=== PATIENT | male | born 1970 | race African-American/Black ===

== ENCOUNTER 2020-12-06 22:02 | Emergency (ER) | payer SELFPAY ==
[~2020-12-06] VITALS: Ht 185.4 cm; Wt 118.9 kg
[2020-12-06 22:03] VITALS: BP 141/97
[2020-12-07] MEDS ORDERED: NS 1,000 ML IV ONE (01:10)
[2020-12-07 01:52] LABS: BASO # 0.1 10^3/uL (0.0-0.2); EOS # 0.5 10^3/uL (0.0-0.5); EOS % 8.6 % (0.0-3.0); HEMATOCRIT 45.3 % (42.0-52.0); HEMOGLOBIN 15.3 g/dl (13.5-17.5); LYMPH # 2.8 10^3/uL (1.5-5.0); MEAN CORPUSCULAR HEMOGLOBIN 29.9 pg (27.0-33.0); MEAN CORPUSCULAR HGB CONC 33.8 g/dl (32.0-36.5); MEAN CORPUSCULAR VOLUME 88.6 fl (80.0-96.0); MONO # 0.8 10^3/uL (0.0-0.8); MONO % 12.9 % (2.0-8.0); NEUTROPHILS # 1.7 10^3/uL (1.5-8.5); NEUTROPHILS % 29.3 % (36.0-66.0); PLATELET COUNT, AUTOMATED 322 10^3/uL (150-450); RED BLOOD COUNT 5.11 10^6/uL (4.30-6.10); WHITE BLOOD COUNT 5.8 10^3/uL (4.0-10.0)
[2020-12-07 02:19] LABS: ALBUMIN 4.1 GM/DL (3.2-5.2); ALT/SGPT 49 U/L (12-78); BILIRUBIN,DIRECT 0.2 MG/DL (0.0-0.2); BILIRUBIN,TOTAL 0.6 MG/DL (0.2-1.0); BLOOD UREA NITROGEN 16 MG/DL (7-18); CALCIUM LEVEL 9.4 MG/DL (8.5-10.1); CARBON DIOXIDE LEVEL 30 MEQ/L (21-32); CHLORIDE LEVEL 99 MEQ/L (98-107); CREATININE FOR GFR 1.12 MG/DL (0.70-1.30); GLOMERULAR FILTRATION RATE > 60.0 (>56); GLUCOSE, FASTING 107 MG/DL (70-100); LIPASE 126 U/L (73-393); POTASSIUM SERUM 3.4 MEQ/L (3.5-5.1); SODIUM LEVEL 136 MEQ/L (136-145); TOTAL PROTEIN 8.1 GM/DL (6.4-8.2)
[2020-12-07] MEDS ORDERED: CIPROFLOXACIN 500MG TABLET PO ONE (02:50)
--- NOTE | 2020-12-07 04:18 | REPVR ---
PROCEDURE INFORMATION: Exam: CT Abdomen And Pelvis Without Contrast Exam date and time: 12/07/2020 3:05 AM Age: 50 years old Clinical indication: Other: Left flank pain, hematuria TECHNIQUE: Imaging protocol: Computed tomography of the abdomen and pelvis without contrast. Radiation optimization: All CT scans at this facility use at least one of these dose optimization techniques: automated exposure control; mA and/or kV adjustment per patient size (includes targeted exams where dose is matched to clinical indication); or iterative reconstruction. COMPARISON: No relevant prior studies available. FINDINGS: Lungs: There is minimal, nonspecific dependent density in the lung bases, likely mild atelectasis. Liver: The unenhanced liver appears unremarkable. Gallbladder and bile ducts: The gallbladder is contracted, limiting its assessment. No definite stones identified. There is no biliary ductal dilation. Pancreas: The pancreas appears unremarkable. No pancreatic ductal dilation identified. Spleen: The unenhanced spleen appears unremarkable. Adrenal glands: The adrenal glands are normal. Kidneys and ureters: There is a 10 mm cyst with simple fluid attenuation at the right kidney upper pole. The unenhanced kidneys appear otherwise unremarkable. There are no ureteral stones or hydronephrosis. Stomach and bowel: The small bowel appears unremarkable. There is no dilation or thickening of the colon. Appendix: A normal appendix is identified. Intraperitoneal space: There is no evidence of free intraperitoneal or pelvic fluid. There is no free intraperitoneal air. Vasculature: Atherosclerotic changes are present in the abdominal aorta and the iliac arteries. No aortic aneurysm. Lymph nodes: No lymphadenopathy is seen. Urinary bladder: There is diffuse bladder wall thickening. No bladder stones identified. There is perivesicular stranding. Reproductive: The prostate gland appears normal. Bones/joints: Degenerative endplate changes are seen at multiple levels in the visualized spine. There is facet arthropathy in the lumbar spine. Soft tissues: There is a small periumbilical hernia containing fat. IMPRESSION: 1. Diffuse bladder wall thickening and perivesicular stranding, likely due to cystitis. 2. No nephrolithiasis, ureterolithiasis, or bladder stones identified. No hydronephrosis. COMMENTS: Consistent with the [employer]'s Incidental Findings Committee white paper (J Am Melissa Radiol 2018): Any incidental renal lesion less than 1 cm or classified as too small to characterize, or any incidental cystic renal lesion characterized as simple-appearing, is likely benign. No follow-up imaging is recommended for these lesions per consensus recommendations based on imaging criteria. Electronically signed by: Renee Melara On 12/07/2020 04:17:46 AM
[2020-12-07] MEDS ORDERED: CIPR-249 PO (04:59)
== END 2020-12-07 05:26 | disposition home or self-care (01) ==
LOC: M ED 22:02
DX: N30.01 Acute cystitis with hematuria (principal); I10 Essential (primary) hypertension

== ENCOUNTER 2020-12-10 10:37 | Emergency (ER) | payer SELFPAY ==
[~2020-12-10] VITALS: Ht 185.4 cm; Wt 121.2 kg
[~2020-12-10 10:37] MED LIST: CIPR-249 PO
[2020-12-10 11:50] LABS: BASO # 0.1 10^3/uL (0.0-0.2); BASO % 1.5 % (0.0-1.0); EOS # 0.4 10^3/uL (0.0-0.5); EOS % 7.3 % (0.0-3.0); HEMATOCRIT 46.8 % (42.0-52.0); HEMOGLOBIN 15.6 g/dl (13.5-17.5); LYMPH # 2.6 10^3/uL (1.5-5.0); LYMPH % 44.3 % (24.0-44.0); MEAN CORPUSCULAR HEMOGLOBIN 29.6 pg (27.0-33.0); MEAN CORPUSCULAR HGB CONC 33.3 g/dl (32.0-36.5); MEAN CORPUSCULAR VOLUME 88.8 fl (80.0-96.0); MONO # 0.6 10^3/uL (0.0-0.8); MONO % 10.8 % (2.0-8.0); NEUTROPHILS # 2.1 10^3/uL (1.5-8.5); NEUTROPHILS % 35.6 % (36.0-66.0); PLATELET COUNT, AUTOMATED 435 10^3/uL (150-450); RED BLOOD COUNT 5.27 10^6/uL (4.30-6.10); WHITE BLOOD COUNT 5.9 10^3/uL (4.0-10.0)
[2020-12-10 12:15] LABS: ALBUMIN 3.9 GM/DL (3.2-5.2); ALT/SGPT 59 U/L (12-78); BILIRUBIN,DIRECT < 0.1 MG/DL (0.0-0.2); BILIRUBIN,TOTAL 0.3 MG/DL (0.2-1.0); TOTAL PROTEIN 7.9 GM/DL (6.4-8.2)
[2020-12-10 13:02] LABS: AMPHETAMINES LEVEL URINE NEGATIVE (NEGATIVE); BARBITURATES URINE NEGATIVE (NEGATIVE); BENZODIAZEPINES URINE NEGATIVE (NEGATIVE); CANNABINOIDS URINE NEGATIVE (NEGATIVE); COCAINE METABOLITE URINE NEGATIVE (NEGATIVE); METHADONE URINE NEGATIVE (NEGATIVE); OPIATES URINE NEGATIVE (NEGATIVE); PHENCYCLIDINE URINE NEGATIVE (NEGATIVE)
[2020-12-10 13:43] VITALS: BP 159/89
== END 2020-12-10 13:45 | disposition home or self-care (01) ==
LOC: M ED 10:37
DX: N30.00 Acute cystitis without hematuria (principal); B96.29 Other Escherichia coli [E. coli] as the cause of diseases classified elsewhere; Z87.448 Personal history of other diseases of urinary system; Z87.442 Personal history of urinary calculi; F17.200 Nicotine dependence, unspecified, uncomplicated